=== PATIENT | female | born 2000 | race Hispanic/Latino ===

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

== ENCOUNTER → 2021-11-30 | Emergency (ER) | payer MEDICAID ==
[~2021-11-30] VITALS: Ht 160 cm; Wt 80.3 kg
[2021-11-30 20:31] VITALS: BP 127/75
== END ==
LOC: EDH 19:27
DX: S01.512A Laceration without foreign body of oral cavity, initial encounter (principal); G40.909 Epilepsy, unspecified, not intractable, without status epilepticus; X58.XXXA Exposure to other specified factors, initial encounter; Y93.89 Activity, other specified; Y92.89 Other specified places as the place of occurrence of the external cause; Y99.8 Other external cause status
CPT/HCPCS: 99281

== ENCOUNTER 2022-05-01 17:31 | Emergency (ER) | payer MEDICAID ==
[~2022-05-01] VITALS: Ht 160 cm; Wt 76.2 kg
[2022-05-01] MEDS ORDERED: FOLIC ACID 5 MG/ML VIAL IV ONE (21:00)
[2022-05-01] MEDS ORDERED: LEVETIRACETAM 500 MG/5 ML SD VIAL IV ONE (21:29)
[2022-05-01 21:40] LABS: BASOPHILS % (AUTO) 0.4 % (0.0-5.0); EOSINOPHILS % (AUTO) 0.6 % (0.0-8.0); HEMATOCRIT 44.3 % (36-48); MEAN CORPUSCULAR HEMOGLOBIN 30.8 pg (27.0-33.0); MEAN CORPUSCULAR HGB CONC 34.8 g/dL (32.0-36.0); MEAN CORPUSCULAR VOLUME 88.6 fL (80-100); MONOCYTES % (AUTO) 5.7 % (3.0-13.0); NEUTROPHILS % (AUTO) 64.9 % (40.0-77.0); PLATELET COUNT (AUTO) 332 K/uL (130-400); RED CELL DISTRIBUTION WIDTH 12.7 % (11.0-15.5); WHITE BLOOD COUNT (AUTO) 12.4 K/uL (4.8-10.8)
[2022-05-01 21:52] LABS: CREATININE 0.6 mg/dL (0.5-1.5)
[2022-05-01] MEDS ORDERED: LEVETIRACETAM 1,000 MG in 0.9%NACL 100ML 100 ML IV SCH (22:00)
[2022-05-01 22:08] LABS: APPEARANCE,URINE Clear (CLEAR); BILIRUBIN,URINE Negative (NEGATIVE); COLOR,URINE Yellow (YELLOW); GLUCOSE, URINE (UA) Negative (NEGATIVE); KETONES,URINE >=160 mg/dL (NEGATIVE); LEUKOCYTE ESTERASE ,URINE Small (NEGATIVE); NITRATE,URINE Negative (NEGATIVE); OCCULT BLOOD,URINE Negative (NEGATIVE); PH,URINE 5.5 (5.0-8.0); PROTEIN,URINE Trace mg/dL (NEGATIVE)
[2022-05-01 22:16] LABS: BACTERIA,URINE Few /HPF (None Seen); MUCUS,URINE Few LPF (None Seen); SQUAMOUS EPITHELIAL CELL,UR Few /HPF (0-2)
[2022-05-01 22:18] LABS: ALBUMIN 3.9 g/dL (3.5-5.0); BILIRUBIN,TOTAL 0.5 mg/dL (0.2-1.0); TOTAL PROTEIN, SERUM 8.3 g/dL (6.0-8.3)
[2022-05-01] MEDS ORDERED: DEXTROSE 50%-WATER 50 ML DISP.SYRIN IV ONE (22:30)
[2022-05-01 22:38] VITALS: BP 102/54
[2022-05-01] MEDS ORDERED: FOLI0.4T6 PO (22:39)
[2022-05-01] MEDS ORDERED: LEVE750T4 PO (22:39)
[2022-05-01] MEDS ORDERED: CEPH500B PO (22:39)
[2022-05-01] MEDS ORDERED: CEFTRIAXONE 1G VIAL IVP ONE (23:00)
== END 2022-05-01 23:29 | disposition home or self-care (01) ==
LOC: EDH 17:31
DX: O99.351 Diseases of the nervous system complicating pregnancy, first trimester (principal); G40.909 Epilepsy, unspecified, not intractable, without status epilepticus; O23.41 Unspecified infection of urinary tract in pregnancy, first trimester; N39.0 Urinary tract infection, site not specified; Z3A.12 12 weeks gestation of pregnancy
CPT/HCPCS: 36415; 76801; 80053; 80177; 81001; 82948; 84702; 85025; 96365; 96375; 99284; J0696; J1953; J7070